=== PATIENT | female | born 1940 | race Caucasian/White ===

== ENCOUNTER 2022-10-31 09:01 | Emergency (ER) | payer MEDICARE, OTHER ==
[2022-10-31 09:09] VITALS: BP 132/66; PULSE 60
== END 2022-10-31 12:42 | disposition home or self-care (01) ==
LOC: MW.ED 09:01
DX: M79.662 Pain in left lower leg (principal); M79.89 Other specified soft tissue disorders; I10 Essential (primary) hypertension; Z79.899 Other long term (current) drug therapy
CPT/HCPCS: 93971-26-LT; 93971-LT; 99282; 99283